=== PATIENT | female | born 1955 | race Caucasian/White ===

== ENCOUNTER 2025-04-02 09:40 | Outpatient (CLI) | payer MEDICARE, BC | END 2025-04-02 09:41 | disposition home or self-care (01) | LOC: BICRAD 09:40 | PROVIDERS: ATTEND Family Medicine | DX: M41.9 Scoliosis, unspecified (principal) | CPT/HCPCS: 72081 ==

== ENCOUNTER 2025-05-03 08:01 | Outpatient (CLI) | payer MEDICARE, BC | END 2025-05-03 08:02 | disposition home or self-care (01) | LOC: BICMAMMO 08:01 | PROVIDERS: ATTEND Family Medicine | DX: Z12.31 Encounter for screening mammogram for malignant neoplasm of breast (principal); N95.1 Menopausal and female climacteric states; R92.333 Mammographic heterogeneous density, bilateral breasts | CPT/HCPCS: 77063; 77067; 77080 ==